=== PATIENT | male | born 1985 | race Caucasian/White ===

== ENCOUNTER → 2017-12-08 | Outpatient (CLI) | payer BC ==
[2017-12-08 09:53] LABS: HCT 45.9 % (39.0-53.0); HGB 14.7 gm/dL (13.0-17.5); MCH 27.8 pg (25.0-35.0); Mean Platelet Volume 7.3; Platelet Count 292 k/uL (150-450); RBC 5.27 m/uL (4.30-5.90); RDW 12.7 % (11.5-15.5); WBC 6.6 k/uL (3.8-10.6)
[2017-12-08 10:05] LABS: ALT 50 U/L (21-72); AST 29 U/L (17-59); Albumin 4.6 g/dL (3.5-5.0); Alkaline Phosphatase 45 U/L (38-126); Anion Gap 12 mmol/L; Blood Urea Nitrogen 18 mg/dL (9-20); Calcium 10.1 mg/dL (8.4-10.2); Carbon Dioxide 24 mmol/L (22-30); Chloride 105 mmol/L (98-107); Glucose 101 mg/dL (74-99); Potassium 4.6 mmol/L (3.5-5.1); Sodium 141 mmol/L (137-145); Total Bilirubin 0.5 mg/dL (0.2-1.3); Total Protein 7.4 g/dL (6.3-8.2)
[2017-12-08 14:52] LABS: Eosinophils # (M) 0.26 k/uL (0-0.7); Monocytes # (M) 0.53 k/uL (0-1.0); Neutrophils % (M) 44 %; Nucleated Red Blood Cells 0 /100 WBC (0-0); Total Cells Counted 100
[2017-12-08 14:53] LABS: Large Platelets Present
== END | disposition home or self-care (01) ==
LOC: LABWHC1 09:36
PROVIDERS: ATTEND Internal Medicine
DX: D72.820 Lymphocytosis (symptomatic) (principal)
CPT/HCPCS: 36415; 80053; 85027

== ENCOUNTER 2022-02-28 21:13 | Emergency (ER) | payer BC ==
[2022-02-28 22:13] VITALS: BP 128/87; PULSE 83; RESP 16; TEMP 97.9
[2022-02-28 22:34] LABS: Basophils # (A) 0.1 k/uL (0-0.2); Basophils % (A) 1 %; Eosinophils # (A) 0.2 k/uL (0-0.7); Eosinophils % (A) 1 %; HCT 49.4 % (39.0-53.0); Lymphocytes # (A) 2.3 k/uL (1.0-4.8); Lymphocytes % (A) 15 %; MCH 28.5 pg (25.0-35.0); MCHC 32.5 g/dL (31.0-37.0); MCV 87.7 fL (80.0-100.0); Mean Platelet Volume 7.5; Monocytes # (A) 0.7 k/uL (0-1.0); Monocytes % (A) 5 %; Neutrophils # (A) 11.6 k/uL (1.3-7.7); Neutrophils % (A) 78 %; Platelet Count 287 k/uL (150-450); RBC 5.62 m/uL (4.30-5.90); RDW 12.1 % (11.5-15.5); WBC 14.9 k/uL (3.8-10.6)
[2022-02-28 22:42] LABS: Albumin 4.9 g/dL (3.5-5.0); Potassium 4.5 mmol/L (3.5-5.1); Total Bilirubin 0.5 mg/dL (0.2-1.3); Total Protein 8.1 g/dL (6.3-8.2)
[2022-02-28 22:48] LABS: Appearance,Urine Clear (Clear); Bilirubin,Urine Negative (Negative); Blood,Urine Negative (Negative); Color,Urine Yellow; Glucose,Urine (UA) Negative (Negative); Ketones,Urine 1+ (Negative); Leukocyte Esterase,Urine Negative (Negative); Nitrite,Urine Negative (Negative); PH, Urine 5.5 (5.0-8.0); Protein,Urine Trace (Negative); Urobilinogen,Urine <2.0 mg/dL (<2.0)
--- NOTE | 2022-02-28 23:12 | XR ---
EXAMINATION TYPE: XR abdomen 2V DATE OF EXAM: 02/28/2022 COMPARISON: NONE HISTORY: Abdominal pain TECHNIQUE: Supine and upright FINDINGS: No evidence of intestinal obstruction or pneumoperitoneum. Fecal pattern is normal. Bowel g as pattern is normal. Lung bases are clear. No calcifications seen over the kidneys. There is some am orphous calcification over the left upper quadrant that could be pancreatic. IMPRESSION: Possible pancreatic calcification. Nonacute bowel gas pattern. Chronic pancreatitis is po ssible.
--- NOTE | 2022-05-14 12:18 | ED ---
Abdominal Pain HPI - General Chief Complaint: Abdominal Pain Stated Complaint: Stomach pain/Pressure Time Seen by Provider: 03/01/22 00:31 Source: patient, RN notes reviewed, old records reviewed Mode of arrival: ambulatory Limitations: no limitations - History of Present Illness Initial Comments: This is a 36-year-old male presented today for evaluation of abdominal pain. Patient complains of stomach pain, pressure. Symptoms for a few hours now pro gressively worsening. Mild nausea no acute vomiting no fevers no diarrhea currently. Symptoms are radiating to help her abdominal area. MD Complaint: abdominal pain -: hour(s) Location: diffuse, epigastric Radiation: epigastric Migration to: epigastric Severity: moderate Severity scale (1-10): 4 Quality: fullness Consistency: intermittent Improves With: nothing Worsens With: nothing Associated Symptoms: nausea Treatments Prior to Arrival: other (0) - Related Data Allergies Allergy/AdvReac Type Severity Reaction Status Date / Time morphine Allergy Dyspnea Verified 02/28/22 22:13 Review of Systems ROS Statement: Those systems with pertinent positive or pertinent negative responses have been documented in the HPI. ROS Other: All systems not noted in ROS Statement are negative. Past Medical History Past Medical History: No Reported History History of Any Multi-Drug Resistant Organisms: None Reported, C-DIFF Date of last positivie culture/infection: 1989 Past Surgical History: Tonsillectomy Past Psychological History: No Psychological Hx Reported Smoking Status: Never smoker Past Alcohol Use History: None Reported Past Drug Use History: None Reported General Exam Limitations: no limitations General appearance: alert, in no apparent distress Head exam: Present: atraumatic, normocephalic, normal inspection Eye exam: Present: normal appearance, PERRL, EOMI. Absent: scleral icterus, conjunctival injection, periorbital swelling ENT exam: Present: normal exam, mucous membranes moist Neck exam: Present: normal inspection. Absent: tenderness, meningismus, lympha denopathy Respiratory exam: Present: normal lung sounds bilaterally. Absent: respiratory distress, wheezes, rales, rhonchi, stridor Cardiovascular Exam: Present: regular rate, normal rhythm, normal heart sounds. Absent: systolic murmur, diastolic murmur, rubs, gallop, clicks GI/Abdominal exam: Present: soft, normal bowel sounds. Absent: distended, tenderness, guarding, rebound, rigid Extremities exam: Present: normal inspection, full ROM, normal capillary refill. Absent: tenderness, pedal edema, joint swelling, calf tenderness Back exam: Present: normal inspection Neurological exam: Present: alert, oriented X3, CN II-XII intact Psychiatric exam: Present: normal affect, normal mood Skin exam: Present: warm, dry, intact, normal color. Absent: rash Course Vital Signs 02/28/22 22:09 Temperature 97.9 F Pulse Rate 83 Respiratory 16 Rate Blood Pressure 128/87 O2 Sat by Pulse 98 Oximetry - Reevaluation(s) Reevaluation #1: Medical record is reviewed Patient symptoms are improved patient informed results and questions answered Medical Decision Making - Medical Decision Making 36 male to the emergency department for evaluation patient presents today for evaluation of abdominal pain. Patient does have significant abdominal pain which is improved here in the ER. Normal lab values normal x-ray. Patient can be discharged home - Lab Data Result diagrams: 02/28/22 22:26 02/28/22 22:26 Lab Results 02/28/22 02/28/22 02/28/22 Range/Units 22:26 22:26 22:26 WBC 14.9 H (3.8-10.6) k/uL RBC 5.62 (4.30-5.90) m/uL Hgb 16.0 (13.0-17.5) gm/dL Hct 49.4 (39.0-53.0) % MCV 87.7 (80.0-100.0) fL MCH 28.5 (25.0-35.0) pg MCHC 32.5 (31.0-37.0) g/dL RDW 12.1 (11.5-15.5) % Plt Count 287 (150-450) k/uL MPV 7.5 Neutrophils % 78 % Lymphocytes % 15 % Monocytes % 5 % Eosinophils % 1 % Basophils % 1 % Neutrophils # 11.6 H (1.3-7.7) k/uL Lymphocytes # 2.3 (1.0-4.8) k/uL Monocytes # 0.7 (0-1.0) k/uL Eosinophils # 0.2 (0-0.7) k/uL Basophils # 0.1 (0-0.2) k/uL Sodium 138 (137-145) mmol/L Potassium 4.5 (3.5-5.1) mmol/L Chloride 104 (98-107) mmol/L Carbon Dioxide 25 (22-30) mmol/L Anion Gap 9 mmol/L BUN 21 H (9-20) mg/dL Creatinine 1.33 H (0.66-1.25) mg/dL Est GFR (CKD-EPI)AfAm 80 (>60 ml/min/1.73 sqM) Est GFR (CKD-EPI)NonAf 69 (>60 ml/min/1.73 sqM) Glucose 113 H (74-99) mg/dL Calcium 10.0 (8.4-10.2) mg/dL Total Bilirubin 0.5 (0.2-1.3) mg/dL AST 30 (17-59) U/L ALT 36 (4-49) U/L Alkaline Phosphatase 52 (38-126) U/L Total Protein 8.1 (6.3-8.2) g/dL Albumin 4.9 (3.5-5.0) g/dL Amylase 58 (30-110) U/L Lipase 42 (23-300) U/L Urine Color Yellow Urine Appearance Clear (Clear) Urine pH 5.5 (5.0-8.0) Ur Specific [place] 1.030 (1.001-1.035) Urine Protein Trace H (Negative) Urine Glucose (UA) Negative (Negative) Urine Ketones 1+ H (Negative) Urine Blood Negative (Negative) Urine Nitrite Negative (Negative) Urine Bilirubin Negative (Negative) Urine Urobilinogen <2.0 (<2.0) mg/dL Ur Leukocyte Esterase Negative (Negative) - Radiology Data Radiology results: report reviewed (X-ray KUB is negative for acute disease), image reviewed Disposition Clinical Impression: Abdominal pain, Abdominal colic Disposition: HOME SELF-CARE Condition: Good Instructions (If sedation given, give patient instructions): Acute Abdominal Pain (DC) Is patient prescribed a controlled substance at d/c from ED?: No Referrals: Bel Templeton MD [Primary Care Provider] - 1-2 days
== END 2022-03-01 00:43 | disposition home or self-care (01) ==
LOC: EC 21:13
DX: R10.84 Generalized abdominal pain (principal); R10.13 Epigastric pain; Z88.5 Allergy status to narcotic agent
CPT/HCPCS: 36415; 74019; 80053; 81003; 82150; 83690; 85025; 99284

== ENCOUNTER → 2023-03-24 | Outpatient (CLI) | payer BC ==
--- NOTE | 2023-03-24 16:34 | US ---
EXAMINATION TYPE: US kidneys/renal and bladder DATE OF EXAM: 03/24/2023 COMPARISON: NONE CLINICAL INDICATION: Male, 37 years old with history of N18.9 CHRONIC KIDNEY DISEASE, UNSPECIFIED; CK D EXAM MEASUREMENTS: Right Kidney: 9.7 x 4.8 x 4.4 cm Left Kidney: 11.7 x 5.3 x 4.5 cm Right Kidney: No hydronephrosis or masses seen, areas of increased renal cortex echogenicity. Left Kidney: No hydronephrosis or masses seen, areas of increased renal cortex echogenicity. Bladder: wnl Bilateral Jets seen: Yes There is no evidence for hydronephrosis at this point in time. No nephrolithiasis is seen. No eugenia s are identified. The urinary bladder is anechoic. Bilateral ureteral jets are seen. IMPRESSION: Areas of increased cortical echogenicity suggestive of medical renal disease.
== END | disposition home or self-care (01) ==
LOC: RADUSWWP 15:31
PROVIDERS: ATTEND Internal Medicine Geriatric Medicine
DX: N18.9 Chronic kidney disease, unspecified (principal)
CPT/HCPCS: 76770

== ENCOUNTER → 2024-12-05 | Outpatient (CLI) | payer BC ==
--- NOTE | 2024-12-05 09:18 | US ---
EXAMINATION TYPE: US abdomen complete DATE OF EXAM: 12/05/2024 COMPARISON: 03/24/2023 CLINICAL INDICATION: Male, 39 years old with history of R94.5 ABNORMAL RESULTS OF LIVER FUNCTION STUD IES; Abnormal labs. TECHNIQUE: Grayscale and color Doppler imaging of the abdomen was performed. FINDINGS: EXAM MEASUREMENTS: Liver Length: 14.8 cm Gallbladder Wall: 0.2 cm CBD: 0.4 cm, color Doppler imaging was utilized to isolate the common bile duct for measurement. Spleen: 9.7 cm Right Kidney: 9.8 x 5.4 x 4.4 cm Left Kidney: 9.6 x 4.5 x 5.8 cm Pancreas: Tail obscured by overlying bowel gas Liver: wnl, no dilated ducts, masses or cysts. Gallbladder: No stones or wall thickening seen Evidence for sonographic Sullivan's sign: neg CBD: wnl Spleen: wnl Right Kidney: wnl, No hydronephrosis, calculi or masses seen Left Kidney: wnl, No hydronephrosis, calculi or masses seen Upper IVC: wnl Abd Aorta: No AAA visualized at time of scan The liver is homogenous. The intrahepatic portion of the IVC and proximal abdominal aorta are within normal limits. There is no evidence of cholelithiasis. Common bile duct is unremarkable. The visu alized portions of the pancreas are homogenous. The spleen is unremarkable. Kidneys are symmetric a nd free of hydronephrosis. No renal lesions are seen. IMPRESSION: No evidence for acute process. [facility] [place], , 12/05/2024 9:16 AM
== END | disposition home or self-care (01) ==
LOC: RADUSWWP 08:19
PROVIDERS: ATTEND Internal Medicine Geriatric Medicine
DX: R94.5 Abnormal results of liver function studies (principal)
CPT/HCPCS: 76700